=== PATIENT | female | born 1985 | race African-American/Black ===

== ENCOUNTER 2017-05-23 18:52 | Emergency (ER) | payer OTHER ==
[~2017-05-23 18:52] MED LIST: ACET325T9 PO; AMOX875T PO; IBUP-1060 PO; LIDO20SO PO; PNV1TABL PO; PRED50TA PO
[2017-05-23 19:13] VITALS: BP 122/83
[2017-05-23] MEDS ORDERED: NAPR500T PO (19:27)
--- NOTE | 2017-05-23 19:28 | PHYS DOC ---
Past Medical History Past Medical History: No Pertinent History Past Surgical History: Tubal ligation, Other Additional Past Surgical Histo: D&C, hernia Alcohol Use: Occasionally Drug Use: None Adult General Chief Complaint Chief Complaint: LOWER EXT PAIN HPI HPI Patient is a 31 year old female presents to the emergency department with complaints of chronic left knee pain. She states she is under care of her primary care provider for that. 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 States she has popping and clicking. Review of Systems Review of Systems Constitutional: Denies fever or chills [] Eyes: Denies change in visual acuity, redness, or eye pain [] HENT: Denies nasal congestion or sore throat [] Respiratory: Denies cough or shortness of breath [] Cardiovascular: No additional information not addressed in HPI [] GI: Denies abdominal pain, nausea, vomiting, bloody stools or diarrhea [] : Denies dysuria or hematuria [] Musculoskeletal: Knee pain Integument: Denies rash or skin lesions [] Neurologic: Denies headache, focal weakness or sensory changes [] Endocrine: Denies polyuria or polydipsia [] Allergies Allergies Allergies Coded Allergies Type Severity Reaction Last Updated Verified No Known Drug Allergies 10/25/13 No Physical Exam Physical Exam Constitutional: Well developed, well nourished, no acute distress, non-toxic appearance. [] HENT: Normocephalic, atraumatic, bilateral external ears normal, oropharynx moist, no oral exudates, nose normal. [] Eyes: PERRLA, EOMI, conjunctiva normal, no discharge. [] Neck: Normal range of motion, no tenderness, supple, no stridor. [] Cardiovascular:Heart rate regular rhythm, no murmur [] Lungs & Thorax: Bilateral breath sounds clear to auscultation [] Abdomen: Bowel sounds normal, soft, no tenderness, no masses, no pulsatile masses. [] Skin: Warm, dry, no erythema, no rash. [] Back: No tenderness, no CVA tenderness. [] Extremities: Left lower extremity exam: Left hip and ankle exam unremarkable. Left knee without swelling, without ecchymosis, without erythema. No laxity on anterior drawer, negative valgus, varus stress test. Neurovascular intact distally. Calf is supple with negative Homans Neurologic: Alert and oriented X 3, normal motor function, normal sensory function, no focal deficits noted. [] Psychologic: Affect normal, judgement normal, mood normal. [] Current Patient Data Vital Signs Vital Signs Date Time Temp Pulse Resp B/P (MAP) Pulse Ox O2 Delivery O2 Flow Rate FiO2 05/23/17 19:13 98.0 84 16 100 Room Air 98.0 EKG EKG [] Radiology/Procedures Radiology/Procedures [] Course & Med Decision Making Course & Med Decision Making Pertinent Labs and Imaging studies reviewed. (See chart for details) [] Dragon Disclaimer Dragon Disclaimer This electronic medical record was generated, in whole or in part, using a voice recognition dictation system. Departure Departure Impression: Primary Impression: Knee pain, chronic Referrals: Td AGUSTIN MD (PCP) Patient Instructions: Knee Pain Scripts Naproxen (NAPROSYN) 500 Mg Tablet 500 MG PO BID Y for PAIN, #20 TAB Prov: ENEDINA GILBERT APRN 05/23/17 Problem Qualifiers Primary Impression: Knee pain, chronic Laterality: left Qualified Codes: M25.562 - Pain in left knee; G89.29 - Other chronic pain ENEDINA GILBERT APRN May 23, 2017 19:27
== END 2017-05-23 19:34 | disposition home or self-care (01) ==
LOC: ER 18:52
DX: G89.29 Other chronic pain (principal); M25.562 Pain in left knee
CPT/HCPCS: 99282

== ENCOUNTER → 2017-06-01 | Outpatient (CLI) | payer OTHER ==
[2017-05-23 19:13] VITALS: BP 122/83
[~2017-06-01] MED LIST changes: +NAPR500T PO
--- NOTE | 2017-06-01 11:22 | RAD ---
MR of the left knee Indication: Left knee pain and swelling with crepitus for 2 months. No known injury. Technique: The standard multiplanar sequences are obtained. Findings: Medial meniscus:Intact. Lateral meniscus: Intact. Anterior cruciate ligament: Intact Posterior cruciate ligament: Intact Medial collateral ligament: Intact. Iliotibial band: Intact. Posterolateral structures: Fibular collateral ligament, biceps tendon and popliteus tendon are intact. Extensor mechanism: Intact. Fluid: Moderate joint effusion. Articular cartilage -patellofemoral joint:Intact -medial compartment:Intact -lateral compartment:Intact Bones: There is a small lobulated bone lesion within the distal femur, centered at the growth plate scar, and measuring 12 mm, most likely a small enchondroma. No significant bone lesion identified. No acute fracture. Soft tissue: Unremarkable Impression: No evidence of meniscal tear or significant abnormality. Electronically signed by: Vinny Keller MD (06/01/2017 11:18 AM) [id number]
== END | disposition home or self-care (01) ==
LOC: MRI 10:08
PROVIDERS: ATTEND Nurse Practitioner Gerontology
DX: M23.8X2 Other internal derangements of left knee (principal); M25.462 Effusion, left knee
CPT/HCPCS: 73721

== ENCOUNTER 2017-10-30 14:43 | Emergency (ER) | payer OTHER ==
[2017-10-30] MEDS: HYDROcodone/APAP 5/325MG 1 TAB TABLET PO (15:33)
[2017-10-30 15:37] LABS: NEG OBC UR NEG; POS OBC UR POS; U PREG PATIENT NEGATIVE (NEG)
== END 2017-10-30 16:30 | disposition home or self-care (01) ==
LOC: ER 14:43
DX: S76.012A Strain of muscle, fascia and tendon of left hip, initial encounter (principal); Z90.49 Acquired absence of other specified parts of digestive tract; Z98.51 Tubal ligation status; X50.9XXA Other and unspecified overexertion or strenuous movements or postures, initial encounter; Y93.89 Activity, other specified; Y99.8 Other external cause status; Y92.89 Other specified places as the place of occurrence of the external cause
CPT/HCPCS: 73502; 81025; 99285-25

== ENCOUNTER 2018-06-18 20:23 | Emergency (ER) | payer OTHER ==
[~2018-06-18] VITALS: Ht 165.1 cm; Wt 90.7 kg
[~2018-06-18 20:23] MED LIST changes: +HYDR-971 PO; +NAPR-683 PO; -NAPR500T PO
[2018-06-18 20:42] VITALS: BP 143/85
[2018-06-18] MEDS ORDERED: GUAI473L15 PO ×2 (20:47→20:49)
[2018-06-18] MEDS ORDERED: PROAIR HFA8.5 GM INH (20:47)
[2018-06-18] MEDS ORDERED: DOXY100C2 PO (20:47)
[2018-06-18] MEDS ORDERED: FLUC150T PO (20:47)
--- NOTE | 2018-06-18 23:14 | PHYS DOC ---
Past Medical History Past Medical History: No Pertinent History Past Surgical History: Tubal ligation Additional Past Surgical Histo: D&C, infant hernia Alcohol Use: Occasionally Drug Use: None Adult General Chief Complaint Chief Complaint: COUGH HPI HPI Patient is a 32 year old f with cough sinus congestion ear pain on the left with coughing and increasing. symptoms x two weeks. patient states no fever but is having some wheezing. has an inhaler at home occasionally wheezes when sick in the past but no hx of asthma or copd. symptoms are moderat coughing is worse at night dry nonproductive. Review of Systems Review of Systems Constitutional: Denies fever or chills [] Cardiovascular: No additional information not addressed in HPI [] GI: Denies abdominal pain, nausea, vomiting, : Denies dysuria or hematuria [] Neurologic: Denies headache, focal weakness or sensory changes [] Endocrine: Denies polyuria or polydipsia [] All other systems were reviewed and found to be within normal limits, except as documented in this note. Allergies Allergies Allergies Coded Allergies Type Severity Reaction Last Updated Verified No Known Drug Allergies 10/25/13 No Physical Exam Physical Exam Constitutional: Well developed, well nourished, no acute distress, non-toxic appearance. [] HENT: Normocephalic, atraumatic, bilateral external ears normal, oropharynx moist, no oral exudates, nose normal. [] Eyes: PERRLA, EOMI, conjunctiva normal, no discharge. [] tms clear bilaterally. Neck: Normal range of motion, no tenderness, supple, no stridor. [] Cardiovascular:Heart rate regular rhythm, no murmur [] Lungs & Thorax: faint wheezing noted Abdomen: Bowel sounds normal, soft, no tenderness, no masses, no pulsatile masses. [] Skin: Warm, dry, no erythema, no rash. [] Back: No tenderness, no CVA tenderness. [] Extremities: No tenderness, no cyanosis, no clubbing, ROM intact, no edema. [] Neurologic: Alert and oriented X 3, normal motor function, normal sensory function, no focal deficits noted. [] Psychologic: Affect normal, judgement normal, mood normal. [] Current Patient Data Vital Signs Vital Signs Date Time Temp Pulse Resp B/P (MAP) Pulse Ox O2 Delivery O2 Flow Rate FiO2 06/18/18 20:42 98.5 105 20 143/85 (104) 99 Room Air 98.5 EKG EKG [] Radiology/Procedures Radiology/Procedures [] Course & Med Decision Making Course & Med Decision Making Pertinent Labs and Imaging studies reviewed. (See chart for details) []bronchitis, sat normal faint wheezing sinusitis sypmtoms x two weeks rx for abx, cough syrup symptomatic tx, prdnisone albuteorl return precautions discussed patient is ambulatory and well appearing Pattie Disclaimer Dragon Disclaimer This electronic medical record was generated, in whole or in part, using a voice recognition dictation system. Departure Departure Impression: Primary Impression: Cough Disposition: HOME, SELF-CARE Condition: STABLE Referrals: Td AGUSTIN MD (PCP) Patient Instructions: Bronchitis, [id number] Scripts Guaifenesin/Codeine Phosphate (GUAIFENESIN AC COUGH SYRUP) 473 Ml Liquid 10 ML PO Q4-6HRS, #120 ML Prov: DEREK TAYLOR MD 06/18/18 Albuterol Sulfate (PROAIR HFA INHALER) 8.5 Gm Hfa.aer.ad 1 PUFF INH PRN Q6HRS PRN for SHORTNESS OF BREATH, #1 INHALER 0 Refills Prov: DEREK TAYLOR MD 06/18/18 Fluconazole (DIFLUCAN) 150 Mg Tablet 1 TAB PO ONCE, #1 TAB 1 Refill Prov: DEREK TAYLOR MD 06/18/18 Doxycycline Hyclate (DOXYCYCLINE HYCLATE) 100 Mg Capsule 1 CAP PO BID, #20 CAP Prov: DEREK TAYLOR MD 06/18/18 DEREK TAYLOR MD Jun 18, 2018 23:14
== END 2018-06-18 21:02 | disposition home or self-care (01) ==
LOC: ER 20:23
DX: R05 Cough (principal); R09.81 Nasal congestion; R06.2 Wheezing
CPT/HCPCS: 99283

== ENCOUNTER 2018-06-20 14:43 | Emergency (ER) | payer OTHER ==
[~2018-06-20] VITALS: Ht 162.6 cm; Wt 90.7 kg
[~2018-06-20 14:43] MED LIST changes: +DOXY100C2 PO; +FLUC150T PO; +GUAI473L15 PO; +PROAIR HFA8.5 GM INH
[2018-06-20] MEDS ORDERED: IV NORMAL SALINE 1000ML BAG 1,000 ML IV SCH (15:06)
[2018-06-20 15:17] LABS: BASO # 0.1 x10^3/uL (0.0-0.2); BASO % 1 % (0-3); EOS # 0.3 x10^3/uL (0.0-0.7); EOS % 2 % (0-3); LYMPH # 2.1 x10^3/uL (1.0-4.8); LYMPH % 19 % (24-48); MEAN CORPUSCULAR HEMOGLOBIN 28 pg (25-35); MEAN CORPUSCULAR HGB CONC 33 g/dL (31-37); MEAN CORPUSCULAR VOLUME 84 fL (79-100); MONO # 0.7 x10^3/uL (0.0-1.1); MONO % 6 % (0-9); NEUT # 7.7 x10^3uL (1.8-7.7); NEUT % 72 % (31-73); PLATELET COUNT 317 x10^3/uL (140-400); RED BLOOD COUNT 4.67 x10^6/uL (3.50-5.40); RED CELL DISTRIBUTION WIDTH 14.7 % (11.5-14.5); WHITE BLOOD COUNT 10.8 x10^3/uL (4.0-11.0)
[2018-06-20 15:22] LABS: BILIRUBIN,URINE NEGATIVE (NEG); CLARITY,URINE CLEAR; COLOR,URINE YELLOW; NITRITE,URINE NEGATIVE (NEG); PROTEIN,URINE NEGATIVE (NEG-TRACE); UROBILINOGEN,URINE 0.2 mg/dL (0.2 mg/dL)
--- NOTE | 2018-06-20 15:23 | PHYS DOC ---
Past Medical History Past Medical History: No Pertinent History Past Surgical History: Tubal ligation Additional Past Surgical Histo: D&C, infant hernia Smoking: Cigarettes (The patient is a nonsmoker.) Alcohol Use: Occasionally Drug Use: None Adult General Chief Complaint Chief Complaint: MULTIPLE COMPLAINTS HPI HPI Patient is a 32-year-old -[place] female, previously healthy, who presents to the emergency department for evaluation. She states that for the past several days, she has had nasal congestion, a cough, stuffiness in her years, general malaise, and has had a few episodes of vomiting this morning. She has not had any definite myalgias. She has not had any fevers or chills. She states that she has had "wheezing". She has no formal diagnosis of asthma, but states she has been told in the past that she had asthmatic bronchitis. She has not had any abdominal pain, diarrhea, or urinary symptoms. She states she was in the emergency department over this past weekend, and is "not any better" . She was treated with doxycycline, a cough syrup, and an albuterol inhaler. There are no alleviating, or exacerbating factors to her symptoms. I discussed the clinical suspicion of the patient has a upper respiratory infection, but the patient would like testing done to make sure there is nothing else serious going on. She was agreeable to IV fluids and hydration, blood work, and an x-ray. Review of Systems Review of Systems Constitutional: Denies fever or chills [] Eyes: Denies change in visual acuity, redness, or eye pain [] HENT: Reports nasal congestion, and fullness in her ears bilaterally. Denies voice changes or sore throat [] Respiratory: Denies pleuritic pain shortness of breath [] Cardiovascular: The patient denies any shortness of breath, chest pain, palpitations, or orthopnea [] GI: Denies abdominal pain, bloody stools or diarrhea. States she vomited a few times this morning. None since. [] : Denies dysuria or hematuria [] Musculoskeletal: Denies back pain or joint pain [] Integument: Denies rash or skin lesions [] Neurologic: Denies headache, focal weakness or sensory changes [] Endocrine: Denies polyuria or polydipsia [] All other systems were reviewed and found to be within normal limits, except as documented in this note. Current Medications Current Medications Current Medications Medications (Trade) Dose Ordered Sig/Pablito Start Time Stop Time Status Last Admin Dose Admin Ketorolac Tromethamine (Toradol 30mg Vial) 30 mg 1X ONCE 06/20/18 15:30 06/20/18 15:34 DC 06/20/18 15:39 30 MG Sodium Chloride 1,000 ml @ 1,000 mls/hr Q1H 06/20/18 15:06 06/20/18 16:05 DC 06/20/18 15:06 1,000 MLS/HR Allergies Allergies Allergies Coded Allergies Type Severity Reaction Last Updated Verified No Known Drug Allergies 10/25/13 No Physical Exam Physical Exam PHYSICAL EXAM: CONSTITUTIONAL: Well developed, well nourished HEAD: normocephalic, atraumatic EENT: PERRL, EOMI. Conjunctivae normal color, sclerae non-icteric; moist mucous membranes. NECK: Supple, non-tender; no meningismus. LUNGS: Lungs CTA, breathing even and unlabored. Normal air movement. There is some mild expiratory wheezing with coughing, but a normal breathing there are no audible wheezes. HEART: Regular rate and rhythm, no murmur CHEST: No deformity; non-tender ABDOMEN: The abdomen is soft, and non-tender, no masses or bruits. EXTREM: Normal ROM; no deformity, no calf tenderness. Normal pulses palpable in all extremities. There is no pedal edema. SKIN: No rash; no diaphoresis NEURO: Alert; normal speech and cognition; CN's grossly intact; strength grossly intact without focal deficit. BACK: No CVA TTP. Current Patient Data Vital Signs Vital Signs Date Time Temp Pulse Resp B/P (MAP) Pulse Ox O2 Delivery O2 Flow Rate FiO2 06/20/18 15:00 97.6 98 18 144/93 (110) 98 Room Air 97.6 Lab Values Laboratory Tests Test 06/20/18 15:03 06/20/18 15:06 06/20/18 15:10 Urine Collection Type Unknown Urine Color Yellow Urine Clarity Clear Urine pH 6.0 Urine Specific [place] >=1.030 Urine Protein Negative mg/dL (NEG-TRACE) Urine Glucose (UA) Negative mg/dL (NEG) Urine Ketones (Stick) Trace mg/dL (NEG) Urine Blood Moderate (NEG) Urine Nitrite Negative (NEG) Urine Bilirubin Negative (NEG) Urine Urobilinogen Dipstick 0.2 mg/dL (0.2 mg/dL) Urine Leukocyte Esterase Negative (NEG) Urine RBC 3-5 /HPF (0-2) Urine WBC 0 /HPF (0-4) Urine Squamous Epithelial Cells Mod /LPF Urine Bacteria 0 /HPF (0-FEW) Urine Mucus Marked /LPF Influenza Type A Antigen Negative (NEGATIVE) Influenza Type B Antigen Negative (NEGATIVE) POC Urine HCG, Qualitative Hcg negative (Negative) White Blood Count 10.8 x10^3/uL (4.0-11.0) Red Blood Count 4.67 x10^6/uL (3.50-5.40) Hemoglobin 13.0 g/dL (12.0-15.5) Hematocrit 39.0 % (36.0-47.0) Mean Corpuscular Volume 84 fL (79-100) Mean Corpuscular Hemoglobin 28 pg (25-35) Mean Corpuscular Hemoglobin Concent 33 g/dL (31-37) Red Cell Distribution Width 14.7 % (11.5-14.5) H Platelet Count 317 x10^3/uL (140-400) Neutrophils (%) (Auto) 72 % (31-73) Lymphocytes (%) (Auto) 19 % (24-48) L Monocytes (%) (Auto) 6 % (0-9) Eosinophils (%) (Auto) 2 % (0-3) Basophils (%) (Auto) 1 % (0-3) Neutrophils # (Auto) 7.7 x10^3uL (1.8-7.7) Lymphocytes # (Auto) 2.1 x10^3/uL (1.0-4.8) Monocytes # (Auto) 0.7 x10^3/uL (0.0-1.1) Eosinophils # (Auto) 0.3 x10^3/uL (0.0-0.7) Basophils # (Auto) 0.1 x10^3/uL (0.0-0.2) Sodium Level 138 mmol/L (136-145) Potassium Level 3.6 mmol/L (3.5-5.1) Chloride Level 100 mmol/L (98-107) Carbon Dioxide Level 26 mmol/L (21-32) Anion Gap 12 (6-14) Blood Urea Nitrogen 11 mg/dL (7-20) Creatinine 0.9 mg/dL (0.6-1.0) Estimated GFR (Cockcroft-Gault) 86.7 BUN/Creatinine Ratio 12 (6-20) Glucose Level 91 mg/dL (70-99) Calcium Level 9.5 mg/dL (8.5-10.1) Total Bilirubin 0.5 mg/dL (0.2-1.0) Aspartate Amino Transferase (AST) 16 U/L (15-37) Alanine Aminotransferase (ALT) 19 U/L (14-59) Alkaline Phosphatase 109 U/L (46-116) Total Protein 8.8 g/dL (6.4-8.2) H Albumin 3.8 g/dL (3.4-5.0) Albumin/Globulin Ratio 0.8 (1.0-1.7) L Laboratory Tests 06/20/18 15:10 Laboratory Tests 06/20/18 15:10 EKG EKG [] Radiology/Procedures Radiology/Procedures [PROCEDURE: CHEST PA & LATERAL Chest, PA and Lateral: Technique: PA and lateral views of the chest were obtained. History: Cough, vomiting. Comparison: None. Findings: The heart and pulmonary vasculature appear within normal limits. The lungs are clear. The pleural margins are clear. Small calcified granuloma right upper lobe lung Impression: No acute chest process is seen. ] Course & Med Decision Making Course & Med Decision Making Pertinent Labs and Imaging studies reviewed. (See chart for details) [5:00 PM:Patient remains stable. I discussed test results, the need for close follow-up, and return precautions.] Dragon Disclaimer Dragon Disclaimer This electronic medical record was generated, in whole or in part, using a voice recognition dictation system. Departure Departure Impression: Primary Impression: Upper respiratory infection Disposition: HOME, SELF-CARE Condition: STABLE Referrals: Td AGUSTIN MD (PCP) Patient Instructions: Upper Respiratory Infection, Adult KETAN WHITLEY MD Jun 20, 2018 15:23
[2018-06-20 15:27] LABS: SQUAMOUS EPITHELIAL CELL,UR MOD /LPF
[2018-06-20 15:28] LABS: BACTERIA,URINE 0 /HPF (0-FEW); WBC,URINE 0 /HPF (0-4)
[2018-06-20] MEDS ORDERED: KETOROLAC 30 MG/ML VIAL. IV ONE (15:30)
[2018-06-20 15:31] LABS: CALCIUM 9.5 mg/dL (8.5-10.1); CREATININE 0.9 mg/dL (0.6-1.0); GFR 86.7; POTASSIUM 3.6 mmol/L (3.5-5.1)
[2018-06-20 15:37] LABS: ALBUMIN 3.8 g/dL (3.4-5.0); ALBUMIN/GLOBULIN RATIO 0.8 (1.0-1.7); TOTAL BILIRUBIN 0.5 mg/dL (0.2-1.0); TOTAL PROTEIN 8.8 g/dL (6.4-8.2)
[2018-06-20 15:43] LABS: INFLUENZA A PATIENT NEGATIVE (NEGATIVE); INFLUENZA B PATIENT NEGATIVE (NEGATIVE)
--- NOTE | 2018-06-20 15:44 | RAD ---
Chest, PA and Lateral: Technique: PA and lateral views of the chest were obtained. History: Cough, vomiting. Comparison: None. Findings: The heart and pulmonary vasculature appear within normal limits. The lungs are clear. The pleural margins are clear. Small calcified granuloma right upper lobe lung Impression: No acute chest process is seen. Electronically signed by: Fran Hewitt MD (06/20/2018 3:40 PM) [facility]
[2018-06-20 16:30] VITALS: BP 138/76
== END 2018-06-20 17:08 | disposition home or self-care (01) ==
LOC: ER 14:43
DX: J06.9 Acute upper respiratory infection, unspecified (principal); R53.81 Other malaise; R11.10 Vomiting, unspecified; J45.909 Unspecified asthma, uncomplicated; Z98.51 Tubal ligation status
CPT/HCPCS: 36415; 71046; 80053; 81001; 81025; 85025; 87804; 96361; 96374; 99285; J1885; J7030

== ENCOUNTER → 2018-11-13 | Outpatient (CLI) | payer OTHER ==
[~2018-11-13] MED LIST changes: +ALBU2.5V8 INH; +HYDR-3164 PO; -HYDR-971 PO; -PROAIR HFA8.5 GM INH
[2018-11-13 10:28] LABS: HEMATOCRIT 36.6 % (36.0-47.0); RED BLOOD COUNT 4.36 x10^6/uL (3.50-5.40); RED CELL DISTRIBUTION WIDTH 14.1 % (11.5-14.5); WHITE BLOOD COUNT 7.3 x10^3/uL (4.0-11.0)
[2018-11-13 11:01] LABS: CALCIUM 8.5 mg/dL (8.5-10.1); CREATININE 0.8 mg/dL (0.6-1.0); GFR 98.8
== END | disposition home or self-care (01) ==
LOC: LAB 09:38
PROVIDERS: ATTEND Family Medicine
DX: Z00.00 Encounter for general adult medical examination without abnormal findings (principal); Z68.37 Body mass index [BMI] 37.0-37.9, adult
CPT/HCPCS: 36415; 80048; 80061; 84443; 85027

== ENCOUNTER → 2018-11-27 | Outpatient (CLI) | payer OTHER | END | disposition home or self-care (01) | LOC: LAB 10:38 | PROVIDERS: ATTEND Family Medicine | DX: R79.89 Other specified abnormal findings of blood chemistry (principal) | CPT/HCPCS: 36415; 84436; 84443 ==

== ENCOUNTER → 2019-02-11 | Emergency (ER) | payer OTHER ==
[~2019-02-11] VITALS: Ht 162.6 cm; Wt 90.7 kg
[~2019-02-11] MED LIST changes: +DEXAMETHASONE 4 MG TABLET PO ONE; +PRED20TA PO; +diphenhydrAMINE ORAL ELIXIR 12.5 MG/5 ML ML PO ONE
[2019-02-11 04:06] VITALS: BP 141/81
--- NOTE | 2019-02-11 04:44 | PHYS DOC ---
Past Medical History Past Medical History: No Pertinent History Past Surgical History: No Surgical History Additional Past Surgical Histo: D&C, infant hernia Alcohol Use: Occasionally Drug Use: None Adult General Chief Complaint Chief Complaint: SKIN RASH/ABSCESS HPI HPI Patient is a 33 year old female who presents with pruritus of her hands and feet associated with a diffuse, mildly erythematous rash over her upper extremities and trunk. The patient states the symptoms began when she woke up earlier this morning with intense itching. She has had viral upper respiratory tract infection symptoms since Monday, including myalgias, congestion, and headache. Her upper respiratory symptoms are improved at this time. She has been taking TheraFlu since yesterday along with NyQuil. She denies any pustular drainage, bleeding, fever or chills. She has no other complaints at this time. Review of Systems Review of Systems Constitutional: Denies fever or chills Eyes: Denies redness or eye pain HENT: Denies nasal congestion or sore throat Respiratory: Mild congestion. denies shortness of breath. Cardiovascular: Denies chest pain or palpitations GI: Denies abdominal pain, nausea, or vomiting : Denies dysuria or hematuria Musculoskeletal: Denies back pain or joint pain Integument: diffuse rash over UE's and trunk. Intense pruritus. Neurologic: Denies headache, focal weakness or sensory changes Complete systems were reviewed and found to be within normal limits, except as documented in this note. Current Medications Current Medications Current Medications Medications (Trade) Dose Ordered Sig/Pablito Start Time Stop Time Status Last Admin Dose Admin Dexamethasone (Decadron) 10 mg 1X ONCE 02/11/19 04:45 02/11/19 04:46 DC Diphenhydramine HCl (Benadryl Oral Elixir) 25 mg 1X ONCE 02/11/19 04:45 02/11/19 04:46 DC Allergies Allergies Allergies Coded Allergies Type Severity Reaction Last Updated Verified No Known Drug Allergies 10/25/13 No Physical Exam Physical Exam Constitutional: Well developed, well nourished, no acute distress, non-toxic appearance Eyes: PERRL, EOMI, conjunctiva normal, no discharge Neck: Normal range of motion, no tenderness, supple Cardiovascular: Heart rate normal, regular rhythm Lungs & Thorax: Bilateral breath sounds clear to auscultation, no wheezing Abdomen: Soft, no tenderness Skin: Mildly erythematous rash over UE's and trunk. No pustular drainage or bleeding present. Extremities: No tenderness, ROM intact, no edema Psychologic: Affect normal, judgement normal, mood normal Current Patient Data Vital Signs Vital Signs Date Time Temp Pulse Resp B/P (MAP) Pulse Ox O2 Delivery O2 Flow Rate FiO2 02/11/19 04:06 97.7 105 16 97 Room Air 97.7 EKG EKG [] Radiology/Procedures Radiology/Procedures [] Course & Med Decision Making Course & Med Decision Making Patient is a 33-year-old female who presents with pruritus of the hands and feet and upper extremity rash. Patient was prescribed steroids and given 1 dose of dexamethasone here to decrease inflammation. In addition, patient was given a dose of Benadryl here and encouraged to use [id number] Benadryl at home. Patient stable for discharge with outpatient follow-up with PCP. Discussed findings and plan with patient and family, who acknowledge understanding and agreement. Dragon Disclaimer Dragon Disclaimer This electronic medical record was generated, in whole or in part, using a voice recognition dictation system. Departure Departure Impression: Primary Impression: Pruritic rash Disposition: 01 HOME, SELF-CARE Referrals: IAIN BUSTOS MD (PCP) Patient Instructions: Pruritus, Rash, [id number] Additional Instructions: Start steroids tomorrow. Take two 20mg tablets every day, for 4 days. Scripts Prednisone (PREDNISONE) 20 Mg Tablet 1 TAB PO BID, #8 TAB Prov: ARACELIS FISHMAN DO 02/11/19 ARACELIS FISHMAN DO Feb 11, 2019 04:44
== END ==
LOC: ER 03:50
DX: R21 Rash and other nonspecific skin eruption (principal); L29.8 Other pruritus
CPT/HCPCS: 99283; J8540

== ENCOUNTER → 2019-12-04 | Outpatient (CLI) | payer OTHER ==
[2019-02-11 04:06] VITALS: BP 141/81
[~2019-12-04] MED LIST changes: -DEXAMETHASONE 4 MG TABLET PO ONE; -diphenhydrAMINE ORAL ELIXIR 12.5 MG/5 ML ML PO ONE
--- NOTE | 2019-12-04 14:43 | RAD ---
PROCEDURE: CERVICAL SPINE 5V STUDY DATE: 12/04/2019 CLINICAL INDICATION / HISTORY: Left-sided myofascial pain. TECHNIQUE: 5 VIEWS: AP, lateral, bilateral oblique and odontoid COMPARISON: None FINDINGS: Alignment is within normal limits. There is preservation of the normal cervical lordosis. Vertebral body heights and disc spaces are well maintained. The atlantoaxial joint is well maintained. No fracture or subluxation is identified. Prevertebral and paraspinous soft tissues are unremarkable. IMPRESSION: Unremarkable C-spine x-ray series. Electronically signed by: Joshua Alcantar MD (12/04/2019 2:41 PM) [id number]
== END | disposition home or self-care (01) ==
LOC: RAD 14:02
PROVIDERS: ATTEND Family Medicine
DX: M79.18 Myalgia, other site (principal)
CPT/HCPCS: 72050